=== PATIENT | female | born 1945 | race Hispanic/Latino ===

== ENCOUNTER 2023-11-19 05:01 | Day surgery (SDC) | payer OTHER, MEDICARE ==
[2023-11-14 10:49] VITALS: BP 120/60; PULSE 77; RESP 18
[2023-11-14 11:06] LABS: BASOPHILS # (AUTO) 0.04 K/uL (0.00-0.20); BASOPHILS % (AUTO) 0.5 % (0.0-5.0); EOSINOPHILS # (AUTO) 0.07 K/uL (0.00-0.70); EOSINOPHILS % (AUTO) 0.9 % (0.0-8.0); HEMATOCRIT 41.3 % (36-48); IMMATURE GRANULOCYTE ABSOLUTE 0.04 K/uL (0-1); LYMPHOCYTES # (AUTO) 1.3 K/uL (1.0-4.8); LYMPHOCYTES % (AUTO) 16.1 % (21.0-51.0); MEAN CORPUSCULAR HEMOGLOBIN 24.5 pg (27.0-33.0); MEAN CORPUSCULAR VOLUME 81.6 fL (79-99); MONOCYTES # (AUTO) 0.5 K/uL (0.1-1.0); NEUTROPHILS # (AUTO) 6.2 K/uL (1.8-7.7); PLATELET COUNT (AUTO) 247 K/uL (130-400); RED BLOOD CELL COUNT(AUTO) 5.06 MIL/uL (4.00-5.50); RED CELL DISTRIBUTION WIDTH 15.9 % (11.0-15.5); WHITE BLOOD COUNT (AUTO) 8.2 K/uL (4.8-10.8)
[2023-11-14 11:10] LABS: CREATININE 0.7 mg/dL (0.5-1.5); POTASSIUM 4.1 mmol/L (3.5-5.1)
[2023-11-14 12:27] LABS: INR 2.49 (0.85-1.15); PROTHROMBIN TIME 27.2 SEC (9.6-11.6)
[2023-11-14 12:29] LABS: PARTIAL THROMBOPLASTIN TIME 42.2 SEC (26.3-35.5)
[~2023-11-19] VITALS: Ht 154.9 cm; Wt 74.2 kg
[2023-11-19] VITALS (24 sets, daily range): BP systolic 117–157; BP diastolic 47–70; PULSE 66–77; RESP 12–18
[~2023-11-19 05:01] MED LIST: ACET-2079 PO; ATOR20TA65 PO; DAPA10TA PO; ICOS1CAP2 PO; LOSA25TA41 PO; METF-444 PO; METO-391 PO; OMEP40CA21 PO; SERT-439 PO; WARF3TAB59 PO
[2023-11-19 05:48] LABS: ALBUMIN 3.4 g/dL (3.5-5.0); BILIRUBIN,DIRECT 0.2 mg/dL (0.0-0.3); BILIRUBIN,TOTAL 0.7 mg/dL (0.2-1.0); TOTAL PROTEIN, SERUM 7.8 g/dL (6.0-8.3)
[2023-11-19] MEDS ORDERED: 0.9%NACL 48.45 ML, ROPIVACAINE 0.5% 49.25ML, EPINEPH 0.5MG KETOROLAC 30MG,CLONIDINE 80MCG IV PRN (06:00)
[2023-11-19 06:48] LABS: INR 1.24 (0.85-1.15); PROTHROMBIN TIME 14.2 SEC (9.6-11.6)
[2023-11-19 06:50] LABS: PARTIAL THROMBOPLASTIN TIME 31.5 SEC (26.3-35.5)
[2023-11-19] MEDS ORDERED: MIDAZOLAM HCL 1 MG/ML 2ML VIAL ONE (07:12)
[2023-11-19] MEDS ORDERED: FENTANYL CITRATE PF 50 MCG/1 ML 2ML VIAL ONE ×2 (07:12→07:24)
[2023-11-19] MEDS: ACETAMINOPHEN WITH CODEINE 1 TAB TAB ONE (10:34)
== END 2023-11-19 15:05 | disposition home or self-care (01) ==
LOC: DAH 05:01
PROVIDERS: ATTEND Orthopaedic Surgery
DX: M25.661 Stiffness of right knee, not elsewhere classified (principal); Z20.822 Contact with and (suspected) exposure to COVID-19; M23.8X1 Other internal derangements of right knee; I10 Essential (primary) hypertension; I25.10 Atherosclerotic heart disease of native coronary artery without angina pectoris; I35.9 Nonrheumatic aortic valve disorder, unspecified; E11.9 Type 2 diabetes mellitus without complications; E78.5 Hyperlipidemia, unspecified; F41.9 Anxiety disorder, unspecified; F32.A Depression, unspecified; E66.3 Overweight; Z79.01 Long term (current) use of anticoagulants; Z95.4 Presence of other heart-valve replacement; Z68.32 Body mass index [BMI] 32.0-32.9, adult; Z79.899 Other long term (current) drug therapy
CPT/HCPCS: 80048; 85025; 85610 ×2; 85730 ×2; 36415 ×2; 87641; 27570; 97161; 97530; 97116; 80076; 82948 ×2; 93005; A6260; A4663; J7030; J3010 ×2; J2250; A4215; A4222; A4221; A4510; A4223 ×2

== ENCOUNTER 2024-04-26 14:55 | Inpatient (IN) | payer OTHER, MEDICARE ==
[~2024-04-26] VITALS: Ht 167.6 cm; Wt 73.7 kg
[~2024-04-26 14:55] MED LIST changes: +DONE5TAB33 PO; -SERT-439 PO; +SERT-440 PO
[2024-04-26 15:13] LABS: BASOPHILS # (AUTO) 0.04 K/uL (0.00-0.20); BASOPHILS % (AUTO) 0.3 % (0.0-5.0); EOSINOPHILS # (AUTO) 0.03 K/uL (0.00-0.70); EOSINOPHILS % (AUTO) 0.2 % (0.0-8.0); HEMATOCRIT 35.8 % (36-48); IMMATURE GRANULOCYTE ABSOLUTE 0.14 K/uL (0-1); LYMPHOCYTES % (AUTO) 7.3 % (21.0-51.0); MEAN CORPUSCULAR HEMOGLOBIN 23.2 pg (27.0-33.0); MEAN CORPUSCULAR VOLUME 74.7 fL (79-99); MONOCYTES # (AUTO) 0.7 K/uL (0.1-1.0); NEUTROPHILS # (AUTO) 11.8 K/uL (1.8-7.7); NEUTROPHILS % (AUTO) 86.2 % (40.0-77.0); PLATELET COUNT (AUTO) 193 K/uL (130-400); RED BLOOD CELL COUNT(AUTO) 4.79 MIL/uL (4.00-5.50); RED CELL DISTRIBUTION WIDTH 18.8 % (11.0-15.5); WHITE BLOOD COUNT (AUTO) 13.6 K/uL (4.8-10.8)
[2024-04-26] MEDS: ONDANSETRON 4MG INJ IVP ONE (15:19)
[2024-04-26] MEDS: MORPHINE 2 MG SYG IVP ONE (15:20)
[2024-04-26 15:26] LABS: INR 2.96 (0.85-1.15); PROTHROMBIN TIME 29.5 SEC (9.6-11.6)
[2024-04-26 15:29] LABS: CREATININE 0.4 mg/dL (0.5-1.0); POTASSIUM 4.9 mmol/L (3.5-5.1)
[2024-04-26] MEDS ORDERED: ICOS1CAP PO (16:47)
[2024-04-26] MEDS ORDERED: MIRA25TA PO (16:49)
[2024-04-26 17:15] VITALS: PULSE 78; RESP 20; O2SAT 99
[2024-04-26] MEDS ORDERED: IPRATROPIUM/ALBUTEROL SULFATE 3 ML SOLUTION IH PRN (17:30)
[2024-04-26] MEDS ORDERED: VANCOMYCIN PROTOCOL PER PHARMACY IV SCH (17:30)
[2024-04-26 18:16] LABS: ALANINE AMINOTRANSFERASE 17 U/L (12-78); ALBUMIN 3.6 g/dL (3.5-5.0); ASPARTATE AMINOTRANSFERASE 50 U/L (10-37); BILIRUBIN,DIRECT < 0.1 mg/dL (0.0-0.3); BILIRUBIN,TOTAL 0.8 mg/dL (0.2-1.0); TOTAL PROTEIN, SERUM 7.9 g/dL (6.0-8.3)
[2024-04-26] MEDS: VANCOMYCIN 2GM/500 ML BAG 500 ML IV ONE (18:22)
[2024-04-26] MEDS: ACETAMINOPHEN 500 MG TABLET PO SCH (18:23)
[2024-04-26] MEDS: CEFEPIME HCL 1 GM VIAL IVPB SCH (18:23)
[2024-04-26] MEDS: 0.9%NACL 1000ML 1,000 ML IV SCH (18:23)
[2024-04-26] MEDS ORDERED: MAGNESIUM 2GM PREMIX 50ML 50 ML IV SCH (18:30)
[2024-04-26] MEDS: FAMOTIDINE 20MG VIAL IV SCH (20:36)
[2024-04-26] MEDS: MORPHINE 2 MG SYG IVP PRN (20:36)
[2024-04-26] MEDS: INSULIN HUMULIN R 100 UNIT/ML 3ML SQ SCH (21:00)
[2024-04-26] MEDS: (Icosapent Ethyl (Vascepa) 2 GM) PO SCH (21:00)
[2024-04-26] MEDS ORDERED: TACROLIMUS 1 MG CAPSULE PO SCH (21:30)
[2024-04-26] MEDS ORDERED: RENAL DOSE IV SCH (21:30)
[2024-04-26] MEDS: SERTRALINE HCL 50 MG TABLET PO SCH (22:05)
[2024-04-27] VITALS (9 sets, daily range): BP systolic 101–121; BP diastolic 48–64; PULSE 71–82; RESP 18–20; O2SAT 92–99
[2024-04-27 05:15] LABS: BASOPHILS # (AUTO) 0.04 K/uL (0.00-0.20); BASOPHILS % (AUTO) 0.5 % (0.0-5.0); EOSINOPHILS # (AUTO) 0.13 K/uL (0.00-0.70); EOSINOPHILS % (AUTO) 1.5 % (0.0-8.0); HEMATOCRIT 32.2 % (36-48); IMMATURE GRANULOCYTE ABSOLUTE 0.09 K/uL (0-1); LYMPHOCYTES # (AUTO) 0.8 K/uL (1.0-4.8); MEAN CORPUSCULAR HGB CONC 31.1 g/dL (32.0-36.0); MEAN CORPUSCULAR VOLUME 74.2 fL (79-99); MONOCYTES # (AUTO) 0.6 K/uL (0.1-1.0); MONOCYTES % (AUTO) 6.9 % (3.0-13.0); NEUTROPHILS # (AUTO) 6.7 K/uL (1.8-7.7); PLATELET COUNT (AUTO) 154 K/uL (130-400); RED BLOOD CELL COUNT(AUTO) 4.34 MIL/uL (4.00-5.50); WHITE BLOOD COUNT (AUTO) 8.4 K/uL (4.8-10.8)
[2024-04-27 05:36] LABS: INR 2.66 (0.85-1.15); PROTHROMBIN TIME 26.7 SEC (9.6-11.6)
[2024-04-27 05:37] LABS: PARTIAL THROMBOPLASTIN TIME 39.6 SEC (26.3-35.5)
[2024-04-27 05:38] LABS: ALBUMIN 3.1 g/dL (3.5-5.0); BILIRUBIN,TOTAL 0.7 mg/dL (0.2-1.0); CREATININE 0.6 mg/dL (0.5-1.0); MAGNESIUM 1.5 mg/dL (1.80-2.40); POTASSIUM 3.7 mmol/L (3.5-5.1); TOTAL PROTEIN, SERUM 6.9 g/dL (6.0-8.3)
[2024-04-27] MEDS: (Mirabegron (Myrbetriq) 25 MG) PO SCH (09:00)
[2024-04-27] MEDS: METOPROLOL SUCCINATE 50 MG TAB.SR.24H PO SCH (10:02)
[2024-04-27] MEDS: LOSARTAN 25 MG TABLET PO SCH (10:02)
[2024-04-27] MEDS: DONEPEZIL HCL 5 MG TAB PO SCH (10:02)
[2024-04-27] MEDS: VANCOMYCIN 1.25 GM/250 ML BAG 250 ML IV SCH (17:25)
[2024-04-27] MEDS: MAGNESIUM 2GM PREMIX 50ML 50 ML IV PRN (20:57)
[2024-04-28] VITALS (7 sets, daily range): BP systolic 108–137; BP diastolic 42–61; PULSE 67–78; RESP 13–20; O2SAT 93–95
[2024-04-28 04:12] LABS: BASOPHILS # (AUTO) 0.03 K/uL (0.00-0.20); BASOPHILS % (AUTO) 0.3 % (0.0-5.0); EOSINOPHILS # (AUTO) 0.19 K/uL (0.00-0.70); EOSINOPHILS % (AUTO) 2.2 % (0.0-8.0); IMMATURE GRANULOCYTE ABSOLUTE 0.07 K/uL (0-1); LYMPHOCYTES # (AUTO) 0.9 K/uL (1.0-4.8); LYMPHOCYTES % (AUTO) 10.7 % (21.0-51.0); MEAN CORPUSCULAR HEMOGLOBIN 22.8 pg (27.0-33.0); MEAN CORPUSCULAR HGB CONC 30.3 g/dL (32.0-36.0); MEAN CORPUSCULAR VOLUME 75.1 fL (79-99); MONOCYTES # (AUTO) 0.6 K/uL (0.1-1.0); MONOCYTES % (AUTO) 6.6 % (3.0-13.0); NEUTROPHILS % (AUTO) 79.4 % (40.0-77.0); PLATELET COUNT (AUTO) 158 K/uL (130-400); RED BLOOD CELL COUNT(AUTO) 4.26 MIL/uL (4.00-5.50); RED CELL DISTRIBUTION WIDTH 19.2 % (11.0-15.5); WHITE BLOOD COUNT (AUTO) 8.8 K/uL (4.8-10.8)
[2024-04-28 04:35] LABS: BILIRUBIN,TOTAL 0.5 mg/dL (0.2-1.0); CREATININE 0.6 mg/dL (0.5-1.0); POTASSIUM 4.1 mmol/L (3.5-5.1); TOTAL PROTEIN, SERUM 7.1 g/dL (6.0-8.3)
[2024-04-28 04:57] LABS: INR 1.89 (0.85-1.15); PROTHROMBIN TIME 19.5 SEC (9.6-11.6)
[2024-04-28] MEDS: HEPARIN 25,000 UNITS/250ML D5W 250 ML IV SCH (11:36)
[2024-04-28] MEDS: HEPARIN 5,000 UNIT VIAL IV PRN (11:38)
[2024-04-29] VITALS (30 sets, daily range): BP systolic 55–179; BP diastolic 55–83; PULSE 67–117; RESP 14–20; O2SAT 95–96
[2024-04-29 02:51] LABS: BASOPHILS # (AUTO) 0.05 K/uL (0.00-0.20); BASOPHILS % (AUTO) 0.5 % (0.0-5.0); EOSINOPHILS # (AUTO) 0.19 K/uL (0.00-0.70); IMMATURE GRANULOCYTE ABSOLUTE 0.09 K/uL (0-1); LYMPHOCYTES # (AUTO) 1.1 K/uL (1.0-4.8); LYMPHOCYTES % (AUTO) 11.6 % (21.0-51.0); MEAN CORPUSCULAR HEMOGLOBIN 23.2 pg (27.0-33.0); MEAN CORPUSCULAR HGB CONC 31.3 g/dL (32.0-36.0); MEAN CORPUSCULAR VOLUME 73.9 fL (79-99); MONOCYTES # (AUTO) 0.7 K/uL (0.1-1.0); NEUTROPHILS # (AUTO) 7.6 K/uL (1.8-7.7); PLATELET COUNT (AUTO) 157 K/uL (130-400); RED BLOOD CELL COUNT(AUTO) 4.06 MIL/uL (4.00-5.50); RED CELL DISTRIBUTION WIDTH 19.1 % (11.0-15.5); WHITE BLOOD COUNT (AUTO) 9.7 K/uL (4.8-10.8)
[2024-04-29 03:04] LABS: ALBUMIN 2.9 g/dL (3.5-5.0); BILIRUBIN,TOTAL 0.7 mg/dL (0.2-1.0); CREATININE 0.6 mg/dL (0.5-1.0); TOTAL PROTEIN, SERUM 6.8 g/dL (6.0-8.3)
[2024-04-29 03:32] LABS: INR 1.36 (0.85-1.15); PROTHROMBIN TIME 14.4 SEC (9.6-11.6)
[2024-04-29 03:33] LABS: PARTIAL THROMBOPLASTIN TIME 49.2 SEC (26.3-35.5)
[2024-04-29 10:31] LABS: INR 1.22 (0.85-1.15)
[2024-04-29 10:33] LABS: PARTIAL THROMBOPLASTIN TIME 21.8 SEC (26.3-35.5)
[2024-04-29] MEDS: SCOPOLAMINE HYDROBROMIDE 1 EACH ADH..PATCH TD ONE (11:26)
[2024-04-29] MEDS ORDERED: LIDOCAINE PF 100MG/5ML (2%) SYRINGE 5ML ONE (12:30)
[2024-04-29] MEDS ORDERED: DEXAMETHASONE SOD PHOSPHATE 10MG/ML 1ML VIAL ONE (12:31)
[2024-04-29] MEDS ORDERED: GLYCOPYRROLATE 0.2 MG/ML 5 ML VIAL ONE (12:31)
[2024-04-29] MEDS ORDERED: ROCURONIUM BROMIDE 10MG/1ML 5ML VL ONE (12:31)
[2024-04-29] MEDS ORDERED: ONDANSETRON 4MG INJ ONE (12:31)
[2024-04-29] MEDS ORDERED: FENTANYL CITRATE PF 50 MCG/1 ML 2ML VIAL ONE (12:31)
[2024-04-29] MEDS ORDERED: PHENYLEPHRINE HCL 10 MG/ML 1ML VIAL IV ONE (12:31)
[2024-04-29] MEDS ORDERED: NEOSTIGMINE METHYLSULFATE 1MG/ML IV ONE (12:31)
[2024-04-29] MEDS ORDERED: PROPOFOL 10 MG/ML 20ML VIAL IV ONE (12:31)
[2024-04-29] MEDS ORDERED: CEFAZOLIN SODIUM 1 GM VIAL ONE (13:14)
[2024-04-29] MEDS: KETOROLAC 15MG/ML VIAL (15MG/ML) ONE (14:31)
[2024-04-29] MEDS: VANCOMYCIN 1.5 GM/250 ML BAG 250 ML IV SCH (18:11)
[2024-04-29] MEDS: WARFARIN SODIUM 2 MG TAB PO ONE (23:54)
[2024-04-29] MEDS: KETOROLAC 15MG/ML VIAL (15MG/ML) IV SCH (23:55)
[2024-04-30] VITALS (8 sets, daily range): BP systolic 81–128; BP diastolic 50–69; PULSE 69–85; RESP 18–20; O2SAT 97
[2024-04-30 02:15] LABS: INR 1.21 (0.85-1.15); PROTHROMBIN TIME 12.9 SEC (9.6-11.6)
[2024-04-30] MEDS ORDERED: POTASSIUM CHLORIDE 10% ELIXIR 20 MEQ/15 ML UDCUP PO PRN (02:30)
[2024-04-30] MEDS ORDERED: POTASSIUM CHLORIDE 20MEQ/100ML 100 ML IV PRN (02:30)
[2024-04-30] MEDS ORDERED: KCL 20 MEQ ERTAB PO PRN (02:30)
[2024-04-30] MEDS: HYDROCODONE/ACETAMINOPHEN 5/325 MG TAB PO PRN (04:08)
[2024-04-30 05:05] LABS: BASOPHILS # (AUTO) 0.02 K/uL (0.00-0.20); BASOPHILS % (AUTO) 0.2 % (0.0-5.0); HEMATOCRIT 24.9 % (36-48); IMMATURE GRANULOCYTE ABSOLUTE 0.11 K/uL (0-1); LYMPHOCYTES # (AUTO) 0.7 K/uL (1.0-4.8); LYMPHOCYTES % (AUTO) 5.9 % (21.0-51.0); MEAN CORPUSCULAR HEMOGLOBIN 23.3 pg (27.0-33.0); MEAN CORPUSCULAR HGB CONC 30.5 g/dL (32.0-36.0); MEAN CORPUSCULAR VOLUME 76.4 fL (79-99); MONOCYTES # (AUTO) 0.6 K/uL (0.1-1.0); NEUTROPHILS # (AUTO) 9.9 K/uL (1.8-7.7); NEUTROPHILS % (AUTO) 87.9 % (40.0-77.0); PLATELET COUNT (AUTO) 179 K/uL (130-400); RED BLOOD CELL COUNT(AUTO) 3.26 MIL/uL (4.00-5.50); RED CELL DISTRIBUTION WIDTH 18.5 % (11.0-15.5); WHITE BLOOD COUNT (AUTO) 11.3 K/uL (4.8-10.8)
[2024-04-30 05:26] LABS: ALBUMIN 2.6 g/dL (3.5-5.0); BILIRUBIN,TOTAL 0.7 mg/dL (0.2-1.0); CREATININE 0.6 mg/dL (0.5-1.0); MAGNESIUM 1.5 mg/dL (1.80-2.40); POTASSIUM 4.4 mmol/L (3.5-5.1); TOTAL PROTEIN, SERUM 6.2 g/dL (6.0-8.3)
[2024-04-30 05:40] LABS: B-TYPE NATRIURETIC PEPTIDE 113 pg/mL (0-100)
[2024-04-30 11:19] LABS: INR 1.38 (0.85-1.15); PROTHROMBIN TIME 14.6 SEC (9.6-11.6)
[2024-04-30] MEDS: FERROUS SULFATE 325 MG TABLET.DR PO SCH (14:25)
[2024-04-30] MEDS: WARFARIN SODIUM 2 MG TAB PO SCH (16:28)
[2024-04-30 17:51] LABS: INR 1.35 (0.85-1.15); PROTHROMBIN TIME 14.3 SEC (9.6-11.6)
[2024-04-30 17:52] LABS: PARTIAL THROMBOPLASTIN TIME 42.8 SEC (26.3-35.5)
[2024-05-01] VITALS: BP 97/52; PULSE 69; RESP 18
[2024-05-01 01:09] LABS: INR 1.52 (0.85-1.15); PROTHROMBIN TIME 15.9 SEC (9.6-11.6)
[2024-05-01 01:10] LABS: PARTIAL THROMBOPLASTIN TIME 58.4 SEC (26.3-35.5)
[2024-05-01 04:00] VITALS: BP 97/49; PULSE 68; RESP 18
[2024-05-01 04:02] LABS: BASOPHILS # (AUTO) 0.04 K/uL (0.00-0.20); BASOPHILS % (AUTO) 0.4 % (0.0-5.0); EOSINOPHILS # (AUTO) 0.19 K/uL (0.00-0.70); EOSINOPHILS % (AUTO) 2.1 % (0.0-8.0); HEMATOCRIT 26.7 % (36-48); IMMATURE GRANULOCYTE ABSOLUTE 0.14 K/uL (0-1); LYMPHOCYTES # (AUTO) 1.8 K/uL (1.0-4.8); LYMPHOCYTES % (AUTO) 20.1 % (21.0-51.0); MEAN CORPUSCULAR HEMOGLOBIN 24.4 pg (27.0-33.0); MEAN CORPUSCULAR HGB CONC 29.6 g/dL (32.0-36.0); MEAN CORPUSCULAR VOLUME 82.4 fL (79-99); MONOCYTES # (AUTO) 0.7 K/uL (0.1-1.0); MONOCYTES % (AUTO) 7.3 % (3.0-13.0); NEUTROPHILS # (AUTO) 6.3 K/uL (1.8-7.7); NEUTROPHILS % (AUTO) 68.6 % (40.0-77.0); PLATELET COUNT (AUTO) 163 K/uL (130-400); RED BLOOD CELL COUNT(AUTO) 3.24 MIL/uL (4.00-5.50); WHITE BLOOD COUNT (AUTO) 9.2 K/uL (4.8-10.8)
[2024-05-01 04:25] LABS: ALBUMIN 2.4 g/dL (3.5-5.0); BILIRUBIN,TOTAL 0.6 mg/dL (0.2-1.0); CREATININE 0.6 mg/dL (0.5-1.0); MAGNESIUM 1.6 mg/dL (1.80-2.40); POTASSIUM 4.4 mmol/L (3.5-5.1); TOTAL PROTEIN, SERUM 5.9 g/dL (6.0-8.3)
[2024-05-01 07:18] LABS: INR 1.76 (0.85-1.15); PROTHROMBIN TIME 18.2 SEC (9.6-11.6)
[2024-05-01 07:19] LABS: PARTIAL THROMBOPLASTIN TIME 73.8 SEC (26.3-35.5)
[2024-05-01 08:00] VITALS: BP 113/54; PULSE 70; RESP 16; O2SAT 100
[2024-05-01] MEDS: MAGNESIUM OXIDE 400 MG TABLET PO SCH (09:44)
[2024-05-01] MEDS: FERROUS SULFATE 325 MG TABLET.DR PO SCH (09:44)
[2024-05-01 11:48] VITALS: BP 94/41; PULSE 70; RESP 18
[2024-05-01 16:00] VITALS: BP 106/35; PULSE 68; RESP 16
[2024-05-01 19:47] LABS: HEMATOCRIT 21.4 % (36-48)
[2024-05-01 20:00] VITALS: BP 102/45; PULSE 71; RESP 18
[2024-05-02] VITALS (9 sets, daily range): BP systolic 97–136; BP diastolic 38–88; PULSE 71–92; RESP 16–18; O2SAT 96–100
[2024-05-02 08:20] LABS: HEMATOCRIT 27.4 % (36-48)
[2024-05-02 08:43] LABS: INR 1.4 (0.85-1.15); PROTHROMBIN TIME 14.7 SEC (9.6-11.6)
[2024-05-02 09:31] LABS: CREATININE 0.6 mg/dL (0.5-1.0); MAGNESIUM 1.5 mg/dL (1.80-2.40); POTASSIUM 3.9 mmol/L (3.5-5.1)
[2024-05-02] MEDS: ONDANSETRON 4MG INJ IVP PRN (09:34)
[2024-05-02 17:48] LABS: HEMATOCRIT 26.9 % (36-48)
[2024-05-02 17:59] LABS: INR 1.28 (0.85-1.15); PROTHROMBIN TIME 13.6 SEC (9.6-11.6)
[2024-05-02] MEDS: VANCOMYCIN 1G/250ML KIT 250 ML IV SCH (18:34)
[2024-05-03] VITALS (8 sets, daily range): BP systolic 102–163; BP diastolic 43–80; PULSE 56–78; RESP 17–20; O2SAT 93–100
[2024-05-03 05:12] LABS: BASOPHILS # (AUTO) 0.03 K/uL (0.00-0.20); BASOPHILS % (AUTO) 0.3 % (0.0-5.0); EOSINOPHILS % (AUTO) 2.2 % (0.0-8.0); HEMATOCRIT 26.6 % (36-48); IMMATURE GRANULOCYTE ABSOLUTE 0.37 K/uL (0-1); LYMPHOCYTES # (AUTO) 1.3 K/uL (1.0-4.8); LYMPHOCYTES % (AUTO) 13.9 % (21.0-51.0); MEAN CORPUSCULAR HEMOGLOBIN 24.4 pg (27.0-33.0); MEAN CORPUSCULAR VOLUME 76.2 fL (79-99); MONOCYTES # (AUTO) 0.6 K/uL (0.1-1.0); MONOCYTES % (AUTO) 6.8 % (3.0-13.0); NEUTROPHILS # (AUTO) 6.6 K/uL (1.8-7.7); NEUTROPHILS % (AUTO) 72.7 % (40.0-77.0); NUCLEATED RED BLOOD CELLS 0.5 % (0.0-0.19); PLATELET COUNT (AUTO) 158 K/uL (130-400); RED BLOOD CELL COUNT(AUTO) 3.49 MIL/uL (4.00-5.50); RED CELL DISTRIBUTION WIDTH 18.9 % (11.0-15.5); WHITE BLOOD COUNT (AUTO) 9.1 K/uL (4.8-10.8)
[2024-05-03 05:21] LABS: INR 1.19 (0.85-1.15); PROTHROMBIN TIME 12.7 SEC (9.6-11.6)
[2024-05-03 05:30] LABS: CREATININE 0.6 mg/dL (0.5-1.0); MAGNESIUM 1.4 mg/dL (1.80-2.40); POTASSIUM 4.5 mmol/L (3.5-5.1)
[2024-05-03 09:45] LABS: INR 1.19 (0.85-1.15); PROTHROMBIN TIME 12.7 SEC (9.6-11.6)
[2024-05-03] MEDS: WARFARIN SODIUM 2 MG TAB PO ONE (15:37)
[2024-05-04] VITALS (8 sets, daily range): BP systolic 101–134; BP diastolic 39–89; PULSE 72–86; RESP 16–20; O2SAT 96–97
[2024-05-04 02:10] LABS: HEMATOCRIT 27.9 % (36-48); MEAN CORPUSCULAR HEMOGLOBIN 24.4 pg (27.0-33.0); MEAN CORPUSCULAR HGB CONC 30.5 g/dL (32.0-36.0); MEAN CORPUSCULAR VOLUME 79.9 fL (79-99); NUCLEATED RED BLOOD CELLS 0.5 % (0.0-0.19); PLATELET COUNT (AUTO) 157 K/uL (130-400); RED BLOOD CELL COUNT(AUTO) 3.49 MIL/uL (4.00-5.50); RED CELL DISTRIBUTION WIDTH 19.4 % (11.0-15.5); WHITE BLOOD COUNT (AUTO) 10.2 K/uL (4.8-10.8)
[2024-05-04 09:26] LABS: INR 1.3 (0.85-1.15); PROTHROMBIN TIME 13.8 SEC (9.6-11.6)
[2024-05-04] MEDS ORDERED: [UNRECOGNIZED DRUG - REMARK] MISC SCH (14:30)
[2024-05-04] MEDS: WARFARIN SODIUM 2 MG TAB PO SCH (16:47)
[2024-05-05 03:19] VITALS: BP 81/66; PULSE 75; RESP 16
[2024-05-05 05:59] LABS: BASOPHILS # (AUTO) 0.05 K/uL (0.00-0.20); BASOPHILS % (AUTO) 0.6 % (0.0-5.0); EOSINOPHILS # (AUTO) 0.14 K/uL (0.00-0.70); EOSINOPHILS % (AUTO) 1.5 % (0.0-8.0); HEMATOCRIT 28.3 % (36-48); IMMATURE GRANULOCYTE ABSOLUTE 0.45 K/uL (0-1); LYMPHOCYTES # (AUTO) 1.2 K/uL (1.0-4.8); LYMPHOCYTES % (AUTO) 12.7 % (21.0-51.0); MEAN CORPUSCULAR HEMOGLOBIN 24.6 pg (27.0-33.0); MEAN CORPUSCULAR VOLUME 81.8 fL (79-99); MONOCYTES # (AUTO) 0.7 K/uL (0.1-1.0); MONOCYTES % (AUTO) 7.3 % (3.0-13.0); NEUTROPHILS # (AUTO) 6.6 K/uL (1.8-7.7); NEUTROPHILS % (AUTO) 72.9 % (40.0-77.0); PLATELET COUNT (AUTO) 180 K/uL (130-400); RED BLOOD CELL COUNT(AUTO) 3.46 MIL/uL (4.00-5.50); RED CELL DISTRIBUTION WIDTH 20.4 % (11.0-15.5); WHITE BLOOD COUNT (AUTO) 9.1 K/uL (4.8-10.8)
[2024-05-05 06:08] LABS: INR 1.32 (0.85-1.15)
[2024-05-05 06:13] LABS: CREATININE 0.6 mg/dL (0.5-1.0); MAGNESIUM 1.5 mg/dL (1.80-2.40); POTASSIUM 4.3 mmol/L (3.5-5.1)
[2024-05-05] MEDS: HYDROCODONE/ACETAMINOPHEN 5/325 MG TAB PO PRN (07:21)
[2024-05-05 08:00] VITALS: BP 107/46; PULSE 77; RESP 16; O2SAT 97
[2024-05-05] MEDS: 0.9%NACL 10ML VIAL IV SCH (09:24)
[2024-05-05 11:58] VITALS: BP 115/58; PULSE 86; RESP 18
[2024-05-05 15:54] VITALS: BP 120/47; PULSE 71; RESP 18
[2024-05-05] MEDS ORDERED: WARFARIN SODIUM 2 MG TAB PO SCH (16:00)
[2024-05-05] MEDS: WARFARIN SODIUM 7.5 MG TAB PO ONE (16:54)
[2024-05-05 20:00] VITALS: O2SAT 94
[2024-05-05 20:58] VITALS: BP 116/49; PULSE 81; RESP 17
[2024-05-06] VITALS (7 sets, daily range): BP systolic 105–133; BP diastolic 42–61; PULSE 74–84; RESP 17–18; O2SAT 94–96
[2024-05-06 07:50] LABS: BASOPHILS # (AUTO) 0.03 K/uL (0.00-0.20); BASOPHILS % (AUTO) 0.3 % (0.0-5.0); EOSINOPHILS # (AUTO) 0.13 K/uL (0.00-0.70); EOSINOPHILS % (AUTO) 1.3 % (0.0-8.0); HEMATOCRIT 25.5 % (36-48); IMMATURE GRANULOCYTE ABSOLUTE 0.49 K/uL (0-1); LYMPHOCYTES # (AUTO) 1.2 K/uL (1.0-4.8); LYMPHOCYTES % (AUTO) 12.5 % (21.0-51.0); MEAN CORPUSCULAR HEMOGLOBIN 24.7 pg (27.0-33.0); MEAN CORPUSCULAR VOLUME 79.7 fL (79-99); MONOCYTES # (AUTO) 0.9 K/uL (0.1-1.0); MONOCYTES % (AUTO) 8.6 % (3.0-13.0); NEUTROPHILS # (AUTO) 7.2 K/uL (1.8-7.7); NEUTROPHILS % (AUTO) 72.3 % (40.0-77.0); NUCLEATED RED BLOOD CELLS 0.2 % (0.0-0.19); PLATELET COUNT (AUTO) 192 K/uL (130-400); WHITE BLOOD COUNT (AUTO) 9.9 K/uL (4.8-10.8)
[2024-05-06 08:05] LABS: INR 1.77 (0.85-1.15); PROTHROMBIN TIME 18.3 SEC (9.6-11.6)
[2024-05-06 08:21] LABS: B-TYPE NATRIURETIC PEPTIDE 86 pg/mL (0-100)
[2024-05-06 13:28] LABS: HEMATOCRIT 28.9 % (36-48)
[2024-05-06] MEDS: WARFARIN SODIUM 2 MG TAB PO SCH (18:30)
[2024-05-07] VITALS (9 sets, daily range): BP systolic 98–127; BP diastolic 35–61; PULSE 76–80; RESP 17–20; O2SAT 96–100
[2024-05-07 05:13] LABS: BASOPHILS # (AUTO) 0.02 K/uL (0.00-0.20); BASOPHILS % (AUTO) 0.2 % (0.0-5.0); EOSINOPHILS % (AUTO) 2.3 % (0.0-8.0); HEMATOCRIT 25.2 % (36-48); LYMPHOCYTES # (AUTO) 1.2 K/uL (1.0-4.8); LYMPHOCYTES % (AUTO) 13.4 % (21.0-51.0); MEAN CORPUSCULAR HEMOGLOBIN 24.8 pg (27.0-33.0); MEAN CORPUSCULAR HGB CONC 30.2 g/dL (32.0-36.0); MEAN CORPUSCULAR VOLUME 82.1 fL (79-99); MONOCYTES # (AUTO) 0.7 K/uL (0.1-1.0); MONOCYTES % (AUTO) 7.6 % (3.0-13.0); NEUTROPHILS # (AUTO) 6.3 K/uL (1.8-7.7); NEUTROPHILS % (AUTO) 71.9 % (40.0-77.0); NUCLEATED RED BLOOD CELLS 0.2 % (0.0-0.19); PLATELET COUNT (AUTO) 198 K/uL (130-400); RED BLOOD CELL COUNT(AUTO) 3.07 MIL/uL (4.00-5.50); RED CELL DISTRIBUTION WIDTH 21.4 % (11.0-15.5); WHITE BLOOD COUNT (AUTO) 8.7 K/uL (4.8-10.8)
[2024-05-07 05:22] LABS: CREATININE 0.6 mg/dL (0.5-1.0); MAGNESIUM 1.8 mg/dL (1.80-2.40); POTASSIUM 4.2 mmol/L (3.5-5.1)
[2024-05-07 05:28] LABS: INR 2.37 (0.85-1.15)
[2024-05-07] MEDS: CEFEPIME HCL 1 GM VIAL IVPB SCH (11:14)
[2024-05-08] VITALS (9 sets, daily range): BP systolic 105–140; BP diastolic 45–74; PULSE 66–82; RESP 16–17; O2SAT 98–100
[2024-05-09 03:45] VITALS: BP 135/62; PULSE 84; RESP 16
[2024-05-09 07:32] VITALS: BP 140/60; PULSE 83; RESP 18
[2024-05-09 08:00] VITALS: O2SAT 97
[2024-05-09 11:25] VITALS: BP 107/49; PULSE 80; RESP 18
[2024-05-09 13:42] LABS: CREATININE 0.7 mg/dL (0.5-1.0); POTASSIUM 4.1 mmol/L (3.5-5.1)
[2024-05-09 15:52] VITALS: BP 114/55; PULSE 78; RESP 18
== END 2024-05-09 19:45 | disposition home or self-care (01) | DRG 481 ==
LOC: EDH 14:55 → EDHIP 17:00 → 4CH 21:18
PROVIDERS: ADMIT Internal Medicine; ATTEND Internal Medicine
PROC: 0QS604Z Reposition Right Upper Femur with Internal Fixation Device, Open Approach (ICD-10-PCS; principal; 2024-04-29 14:00)
PROC: 30233N1 Transfusion of Nonautologous Red Blood Cells into Peripheral Vein, Percutaneous Approach (ICD-10-PCS; 2024-04-30)
DX: S72.141A Displaced intertrochanteric fracture of right femur, initial encounter for closed fracture (principal); D62 Acute posthemorrhagic anemia; T84.53XA Infection and inflammatory reaction due to internal right knee prosthesis, initial encounter; L03.115 Cellulitis of right lower limb; K21.9 Gastro-esophageal reflux disease without esophagitis; D50.9 Iron deficiency anemia, unspecified; E83.42 Hypomagnesemia; W18.30XA Fall on same level, unspecified, initial encounter; Y83.1 Surgical operation with implant of artificial internal device as the cause of abnormal reaction of the patient, or of later complication, without mention of misadventure at the time of the procedure; I10 Essential (primary) hypertension; F03.90 Unspecified dementia, unspecified severity, without behavioral disturbance, psychotic disturbance, mood disturbance, and anxiety; E11.9 Type 2 diabetes mellitus without complications; E78.5 Hyperlipidemia, unspecified; E78.00 Pure hypercholesterolemia, unspecified; I25.10 Atherosclerotic heart disease of native coronary artery without angina pectoris; K31.7 Polyp of stomach and duodenum; Z95.1 Presence of aortocoronary bypass graft; Y92.009 Unspecified place in unspecified non-institutional (private) residence as the place of occurrence of the external cause; Z88.1 Allergy status to other antibiotic agents; Z79.01 Long term (current) use of anticoagulants; Z88.8 Allergy status to other drugs, medicaments and biological substances; Y93.89 Activity, other specified; Z95.2 Presence of prosthetic heart valve; Y99.8 Other external cause status; Y83.8 Other surgical procedures as the cause of abnormal reaction of the patient, or of later complication, without mention of misadventure at the time of the procedure; Y79.2 Prosthetic and other implants, materials and accessory orthopedic devices associated with adverse incidents
CPT/HCPCS: 36415; 36430; 70450; 71045; 72125; 73502; 73503; 73523; 73552; 80048; 80053; 80076; 80202; 82550; 82948; 83735; 83880; 84145; 84484; 85014; 85018; 85025; 85027; 85610; 85651; 85730; 86140; 86850; 86900; 86901; 86923; 87040; 87070; 87076; 93005; 96365; 96375; C1894; G0378; J0690; J0692; J1100; J1644; J1815; J1885; J2001; J2270; J2371; J2405; J2704; J2710; J3010; J3370; J3475; J3490; P9016; 3370; A4216; A4222; A4223; A6219; A6223; C1713; C1750